=== PATIENT | female | born 1965 | race Caucasian/White ===

== ENCOUNTER 2016-09-28 17:17 | Emergency (ER) | payer OTHER ==
[~2016-09-28 17:17] MED LIST: AMBIEN CR PO; AMITRIPTYLINE100 MG PO; ESTRADIOL1 MG PO; TOBREX5 ML OP; TOPAMAX PO; VITAMIN B12; ZYRTEC-D TABLE1 EACH PO
== END 2016-09-28 17:18 | disposition home or self-care (01) ==
LOC: SED 17:17
DX: S80.12XA Contusion of left lower leg, initial encounter (principal); Z88.2 Allergy status to sulfonamides; Z79.899 Other long term (current) drug therapy; Z87.891 Personal history of nicotine dependence; W18.39XA Other fall on same level, initial encounter; Y92.098 Other place in other non-institutional residence as the place of occurrence of the external cause
CPT/HCPCS: 99283

== ENCOUNTER → 2016-10-19 | Outpatient (CLI) | payer OTHER ==
--- NOTE | ~2016-10-19 | CR169 ---
[facility] A Service of [facility] & [facility] RADIOLOGY TEXT RESULTS PATIENT: EMANUEL LUCERO LOCATION: [facility] : 63 UNIT #: [id number] AGE: [address]: ELIZABETH WIN APRN SEX: F ORDER DR: [id number] [address] [address] [id number] O MR#: [id number] Acc #: [id number] NAME: EMANUEL LUCERO : 1965 SEX: F STUDY DATE/TIME: 10/19/2016 13:46 UNIT: [facility] ROOM: STUDY DESCRIPTION: CR Knee 2 Views Lt Attending Physician: Elizabeth Win Aprn Referring Physician: Elizabeth Win Aprn Ordering Physician: Elizabeth Win Aprn Primary Care Physician: Cindi Mishra M.D. MEDICAL IMAGING REPORT This report is preliminary unless electronic signature is present. EXAM Left knee 2 views 10/19/2016 HISTORY Left knee pain posteriorly for 3 weeks status post fall at home out of bathtub. FINDINGS 2 views of the left knee demonstrate no fracture. There is degenerative change with mild narrowing of the medial compartment of the knee. Small osteophytes are seen along the posterior aspect of the patella. The bones are normally mineralized. There is no joint effusion. IMPRESSION Mild degenerative change involving the left knee. No acute abnormality. Dictated by... Alessandro Araujo M.D. THIS IS AN ELECTRONICALLY VERIFIED REPORT Alessandro Araujo M.D. at 10/20/2016 8:30 AM KRT/pcl TD: 10/19/2016 15:15 JOB #: [id number] MEDICAL IMAGING REPORT Page 1 of 1
== END | disposition home or self-care (01) ==
LOC: SRAD 13:41
DX: M25.562 Pain in left knee (principal)
CPT/HCPCS: 73560